=== PATIENT | male | born 1950 | race Caucasian/White ===

== ENCOUNTER 2018-01-10 16:13 | Emergency (ER) | payer MEDICARE, OTHER, BC ==
[2018-01-10 16:36] LABS: #Basophils 0.1 thou/uL (0.0-0.2); #Eosinphils 0.2 thou/uL (0.0-0.7); #Lymphocytes 3.3 thou/uL (1.20-3.40); #Monocytes 0.9 thou/uL (0.11-0.59); #Neutrophils 6.1 thou/uL (1.40-6.50); %Basophils 1.1 % (0.0-1.0); %Eosinophils 1.6 % (0.0-10.0); %Lymphocytes 30.9 % (21.0-51.0); %Monocytes 8.4 % (0.0-10.0); Hemoglobin 16.2 g/dL (14.0-18.0); Mean Corpuscular HGB CONC 32.4 g/dL (32.0-36.0); Mean Corpuscular Hemoglobin 31.4 pg (27.0-31.0); Mean Corpuscular Volume 96.8 fl (80.0-94.0); Platelet Count 220 thou/uL (130-400); RBC Distribution Width 12.9 % (11.5-14.5); Red Blood Cell (RBC) Count 5.17 mill/uL (4.70-6.10); White Blood Cell (WBC) Count 10.6 thou/uL (4.8-10.8)
[2018-01-10 16:39] LABS: Lavender RECEIVED; Red RECEIVED
[2018-01-10 16:42] LABS: INR-International Normal Ratio 1.1; Prothrombin Time 13.8 SEC (12.0-14.7)
[2018-01-10 16:43] LABS: PTT 25.2 SEC (22.9-36.1)
[2018-01-10 16:48] LABS: ALT (SGPT) 23 U/L (8-55); AST (SGOT) 17 U/L (5-34); Alkaline Phosphatase 42 U/L (40-150); Anion Gap 13 mmol/L (10-20); BUN (Urea Nitrogen) 18 mg/dL (8.4-25.7); Bilirubin, Total 0.7 mg/dL (0.2-1.2); Calc. Creatinine Clearance 0 mL/min (70-130); Calcium 9.2 mg/dL (7.8-10.44); Carbon Dioxide 20 mmol/L (23-31); Chloride 109 mmol/L (98-107); Estimated GFR-MDRD 85; Globulin 2.3 g/dL (2.4-3.5); Glucose 134 mg/dL (80-115); Potassium 3.1 mmol/L (3.5-5.1); Protein, Total 6.3 g/dL (5.8-8.1); Sodium 139 mmol/L (136-145)
[2018-01-10 17:42] LABS: Hemoglobin 15.8 g/dL (14.0-18.0)
[2018-01-10 20:47] LABS: Hemoglobin 15.5 g/dL (14.0-18.0)
--- NOTE | 2018-01-15 13:23 | EKG ---
Test Reason : Blood Pressure : / mmHG Vent. Rate : 082 BPM Atrial Rate : 082 BPM P-R Int : 154 ms QRS Dur : 094 ms QT Int : 402 ms P-R-T Axes : 033 -51 034 degrees QTc Int : 469 ms Sinus rhythm with occasional Premature ventricular complexes Left axis deviation Pulmonary disease pattern Incomplete right bundle branch block Septal infarct , age undetermined Abnormal ECG Confirmed by AFSHAN AUGUST ([id number]), associate editor REBECCA GUZMAN ([id number]) on 01/15/2018 1:23:00 PM Referred By: Confirmed By:AFSHAN AUGUST
== END 2018-01-10 21:17 | disposition home or self-care (01) ==
LOC: ERS 16:13
DX: E89.810 Postprocedural hemorrhage of an endocrine system organ or structure following an endocrine system procedure (principal); E78.5 Hyperlipidemia, unspecified; I10 Essential (primary) hypertension; Z79.82 Long term (current) use of aspirin
CPT/HCPCS: 36415; 80053; 82150; 85025; 85610; 85730; 86850; 86900; 86901; 93005; 96360; 96361

== ENCOUNTER 2019-06-18 09:10 | Emergency (ER) | payer MEDICARE, OTHER ==
[2019-06-18 10:16] LABS: Bacteria/HPF None Seen HPF (None Seen); Bilirubin Negative (Negative); Blood, Urine 2+ (Negative); Clarity Clear (Clear); Glucose, Urine (Dipstick) Normal (Negative); Leukocyte Negative Leu/uL (Negative); Nitrite Negative (Negative); Protein, Urine (Dipstick) Negative (Neg-Trace); RBC/HPF Greater than 50 HPF (0-3); Squamous Epithelial None Seen HPF (0-3); Urobilinogen 3 mg/dL (Less than 2); WBC/HPF 0-3 HPF (0-3)
== END 2019-06-18 10:42 | disposition home or self-care (01) ==
LOC: ERS 09:10
DX: R31.9 Hematuria, unspecified (principal); I25.2 Old myocardial infarction; E78.5 Hyperlipidemia, unspecified; I10 Essential (primary) hypertension; Z85.46 Personal history of malignant neoplasm of prostate; Z79.82 Long term (current) use of aspirin; Z79.899 Other long term (current) drug therapy
CPT/HCPCS: 81003; 81015; 99283

== ENCOUNTER 2019-09-19 07:38 | Outpatient (CLI) | payer MEDICARE, OTHER ==
--- NOTE | 2019-09-19 08:46 | MRI ---
MR of the left shoulder without contrast INDICATION: Left shoulder pain. Bursitis of the left shoulder TECHNIQUE: Sagittal T1, axial and coronal PD fat sat, sagittal and coronal T2 fat sat images were obt ained of the left shoulder. COMPARISON: None FINDINGS: Rotator cuff: There is a low-grade region of intratendinous delamination involving the anterior infra spinatus at the footprint extending along the anterior course of the infraspinatus tendon to the level of musculotendinous junction. There is mild tendinosis of the supraspinatus and infraspinatus. No full-thickness tear is evident. Glenohumeral joint: Articular cartilage is intact. Glenoid labrum: There is a full-thickness tear involving the glenoid labrum extending from approximat zhen the 3:00 position through the 6:00 position. There is no evidence of tear extension into the biceps anchor. Biceps tendon and biceps anchor: There is [id number] tendinosis of the intra-articular biceps t endon. Acromion clavicular joint: There is severe acromioclavicular joint osteoarthrosis with joint hypertro phy and inferior projecting distal clavicle spur inducing mild encroachment on the subjacent supraspinatus musculotendinous junction. Subacromial subdeltoid space: Tiny amount of fluid is seen within the subacromial subdeltoid bursa. Axillary region: No lymphadenopathy. Surrounding shoulder musculature: There is a mild amount of muscular edema seen within the mid deltoi d musculature, near the level of the acromial process. IMPRESSION: 1. Large SLAP tear. 2. 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 Mild supraspinatus and infras pinatus tendinosis. 3. Mild to moderate biceps tendinosis. 4. 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 5. Mild muscular edema of the mid deltoid musculature, near the acromion process may reflect sequela of a recent shoulder injection. Recommend correlation. Mild muscular strain could have a similar appearance.
== END 2019-09-19 07:39 | disposition home or self-care (01) ==
LOC: TBSIIMAG 07:38
PROVIDERS: ATTEND Family Medicine
DX: M25.512 Pain in left shoulder (principal); S43.432A Superior glenoid labrum lesion of left shoulder, initial encounter; M67.88 Other specified disorders of synovium and tendon, other site; M19.012 Primary osteoarthritis, left shoulder; R60.0 Localized edema

== ENCOUNTER 2019-12-13 08:59 | Outpatient (CLI) | payer MEDICARE, OTHER ==
--- NOTE | 2019-12-13 09:45 | ULT ---
ULTRASOUND ABDOMEN LIMITED: (RIGHT UPPER QUADRANT) DATE: 12/13/2019 HISTORY: 69-year-old male with epigastric pain FINDINGS: Gallbladder: Normal wall thickness. No gallstones or sludge identified. No pericholecystic fluid. Liver: Normal parenchymal echogenicity. Right kidney: No hydronephrosis. There is a 1.5 cm cyst. Pancreas: Obscured by shadowing from bowel gas. Common duct caliber: 5 mm. IMPRESSION: 1) no major pathology identified. 2) pancreas not visualized. 3) small 1.5 cm right renal cyst.
== END 2019-12-13 09:00 | disposition home or self-care (01) ==
LOC: BICULT 08:59
PROVIDERS: ATTEND Family Medicine
DX: R10.13 Epigastric pain (principal); N28.1 Cyst of kidney, acquired
CPT/HCPCS: 76705